=== PATIENT | female | born 1950 | race Caucasian/White ===

== ENCOUNTER 2020-11-26 13:55 | Emergency (ER) | payer MEDICARE ==
[2020-11-26 15:08] LABS: HEMOGLOBIN 10.9 gm/dl (12.3-15.3); RED BLOOD COUNT 3.91 M/UL (4.00-5.10); WHITE BLOOD COUNT 6.9 K/UL (4.5-11.0)
[2020-11-26 15:32] LABS: BUN/CREATININE RATIO 32 (0-10)
== END 2020-11-26 17:50 | disposition home or self-care (01) ==
LOC: ER1 13:55
PROVIDERS: Family Medicine
DX: D64.9 Anemia, unspecified (principal); J44.9 Chronic obstructive pulmonary disease, unspecified; I10 Essential (primary) hypertension; F17.200 Nicotine dependence, unspecified, uncomplicated
CPT/HCPCS: 71045; 80053; 81001; 82550; 82553; 83735; 83874; 84439; 84443; 84484; 85025; 87086; 93005; 99285

== ENCOUNTER 2020-12-23 11:19 | Emergency (ER) | payer MEDICARE ==
[2020-12-23 12:33] LABS: HEMOGLOBIN 14.2 gm/dl (12.3-15.3); RED BLOOD COUNT 4.7 M/UL (4.00-5.10); WHITE BLOOD COUNT 5.6 K/UL (4.5-11.0)
[2020-12-23 13:03] LABS: BUN/CREATININE RATIO 29 (0-10)
[2020-12-23] MEDS ORDERED: OMNICEF 300 MG300 MG PO (13:34)
== END 2020-12-23 13:42 | disposition home or self-care (01) ==
LOC: ER1 11:19
PROVIDERS: Nurse Practitioner
DX: R30.0 Dysuria (principal); J44.9 Chronic obstructive pulmonary disease, unspecified; F17.210 Nicotine dependence, cigarettes, uncomplicated; N39.0 Urinary tract infection, site not specified; M54.2 Cervicalgia; M79.602 Pain in left arm; G89.29 Other chronic pain
CPT/HCPCS: 72040; 73030; 80053; 81001; 82550; 82553; 83874; 84484; 85025; 87086; 93005; 96374; 99284; J1885; J7030

== ENCOUNTER 2021-02-12 10:35 | Emergency (ER) | payer MEDICARE ==
[~2021-02-12 10:35] MED LIST: CELEBREX200 MG PO; CYCLOBENZAPRINE10 MG PO; OMNICEF 300 MG300 MG PO
== END 2021-02-12 15:00 | disposition home or self-care (01) ==
LOC: ER1 10:35
DX: G89.29 Other chronic pain (principal); M54.6 Pain in thoracic spine; F17.200 Nicotine dependence, unspecified, uncomplicated; J44.9 Chronic obstructive pulmonary disease, unspecified
CPT/HCPCS: 96372; 99283; J1100; J1885

== ENCOUNTER 2021-03-08 20:27 | Emergency (ER) | payer MEDICARE ==
[2021-03-08 21:12] LABS: HEMOGLOBIN 14.3 gm/dl (12.3-15.3); RED BLOOD COUNT 4.45 M/UL (4.00-5.10); WHITE BLOOD COUNT 5.6 K/UL (4.5-11.0)
[2021-03-08 22:03] LABS: BUN/CREATININE RATIO 38 (0-10)
== END 2021-03-09 03:30 | disposition home or self-care (01) ==
LOC: ER1 20:27
PROVIDERS: Emergency Medicine
DX: R41.82 Altered mental status, unspecified (principal); I10 Essential (primary) hypertension; F17.210 Nicotine dependence, cigarettes, uncomplicated; Z20.822 Contact with and (suspected) exposure to COVID-19
CPT/HCPCS: 0240U; 70450; 70496; 70498; 71045; 80053; 80307; 81001; 82140; 82550; 82553; 82962; 83605; 83735; 83874; 84484; 85025; 87040; 93005; 99285; Q9967

== ENCOUNTER 2021-05-14 07:56 | Emergency (ER) | payer MEDICARE ==
[2021-05-14 09:13] LABS: HEMOGLOBIN 13.9 gm/dl (12.3-15.3); RED BLOOD COUNT 4.3 M/UL (4.00-5.10); WHITE BLOOD COUNT 8.4 K/UL (4.5-11.0)
[2021-05-14 09:47] LABS: BUN/CREATININE RATIO 8 (0-10)
[2021-05-14] MEDS ORDERED: POTASSIUM CHLO10 ME1 PO (10:15)
== END 2021-05-14 10:58 | disposition home or self-care (01) ==
LOC: ER1 07:56
PROVIDERS: Physician Assistant
DX: E87.6 Hypokalemia (principal); R42 Dizziness and giddiness; J44.9 Chronic obstructive pulmonary disease, unspecified; F17.200 Nicotine dependence, unspecified, uncomplicated; E78.5 Hyperlipidemia, unspecified
CPT/HCPCS: 80053; 82550; 82553; 83735; 84484; 85025; 93005; 99284